=== PATIENT | female | born 1995 | race African-American/Black ===

== ENCOUNTER 2019-02-17 10:03 | Emergency (ER) | payer MEDICAID ==
--- NOTE | 2019-02-17 10:13 | ER Document Report ---
ED Medical Screen (RME) - General Stated Complaint: CHEST PAIN,COUGH,ABDOMINAL PAIN Time Seen by Provider: 02/17/19 10:08 Mode of Arrival: Ambulatory Information source: Patient Notes: 23-year-old female with no past medical history presents emergency department with complaints of cough for the past 2 weeks with her chest hurting. She also complains of left-sided abdominal pain that comes and goes for the past 2 weeks. Reports very little diarrhea and she vomited last week. She also reports her menses is a little different and she spotted, possibly . Denies fever. Denies past medical history of asthma cardiac disease. Denies past medical history of IBS Crohn's diverticulitis. Patient looks absolutely wonderful no distress respiratory rate even nonlabored. I have greeted and performed a rapid initial assessment of this patient. A comprehensive ED assessment and evaluation of the patient, analysis of test results and completion of the medical decision making process will be conducted by additional ED providers. - Related Data Allergies/Adverse Reactions: amoxicillin Allergy (Verified 02/17/19 10:08) Physical Exam - Vital signs Vitals: Temp Pulse Resp BP Pulse Ox 97.8 F 117 H 16 121/79 100 02/17/19 10:08 02/17/19 10:08 02/17/19 10:08 02/17/19 10:08 02/17/19 10:08 Course - Vital Signs Vital signs: Temp Pulse Resp BP Pulse Ox 97.8 F 117 H 16 121/79 100 02/17/19 10:08 02/17/19 10:08 02/17/19 10:08 02/17/19 10:08 02/17/19 10:08
[2019-02-17 10:52] LABS: ABSOLUTE BASOPHILS # (AUTO) 0.1 10^3/uL (0.0-0.2); ABSOLUTE MONOCYTES (AUTO) 0.6 10^3/uL (0.1-1.4); HEMATOCRIT 39.9 % (36.0-47.0); HEMOGLOBIN 13.3 g/dL (12.0-15.5); TOTAL CELLS COUNTED % (AUTO) 100 %
[2019-02-17 10:55] LABS: APPEARANCE,URINE CLEAR; BILIRUBIN,URINE NEGATIVE (NEGATIVE); COLOR,URINE YELLOW; GLUCOSE, URINE NEGATIVE (NEGATIVE); KETONES,URINE NEGATIVE (NEGATIVE); LEUKOCYTE ESTERASE,URINE TRACE (NEGATIVE); NITRITE,URINE NEGATIVE (NEGATIVE); PROTEIN,URINE NEGATIVE (NEGATIVE); UROBILINOGEN,URINE NEGATIVE mg/dL (<2.0)
[2019-02-17 10:59] LABS: ABSOLUTE LYMPHOCYTES (AUTO) 1.6 10^3/uL (0.5-4.7); ABSOLUTE NEUT (AUTO) 4.2 10^3/uL (1.7-8.2); BASOPHILS % (AUTO) 1.1 % (0-2); EOSINOPHILS % (AUTO) 0.7 % (0-6); LYMPHOCYTES % (AUTO) 24.7 % (13-45); MEAN CORPUSCULAR HEMOGLOBIN 31.1 pg (27.0-33.4); MEAN CORPUSCULAR HGB CONC 33.4 g/dL (32.0-36.0); MEAN CORPUSCULAR VOLUME 93 fl (80-97); MONOCYTES % (AUTO) 9.8 % (3-13); PLATELET COUNT 285 10^3/uL (150-450); RED BLOOD COUNT 4.27 10^6/uL (3.72-5.28); RED CELL DISTRIBUTION WIDTH 12.6 % (11.5-14.0); SEGMENTED NEUTROPHILS % (AUTO) 63.7 % (42-78); WHITE BLOOD COUNT 6.6 10^3/uL (4.0-10.5)
[2019-02-17 11:11] LABS: ALBUMIN 4.3 g/dL (3.5-5.0); ALKALINE PHOSPHATASE 70 U/L (38-126); ANION GAP 11 (5-19); ASPARTATE AMINO TRANSFERASE 20 U/L (14-36); BILIRUBIN,DIRECT 0.1 mg/dL (0.0-0.4); BILIRUBIN,TOTAL 0.4 mg/dL (0.2-1.3); BLOOD UREA NITROGEN 13 mg/dL (7-20); CALCIUM 9.4 mg/dL (8.4-10.2); CARBON DIOXIDE 23 mmol/L (22-30); CHLORIDE 106 mmol/L (98-107); GLUCOSE 106 mg/dL (75-110); POTASSIUM 3.6 mmol/L (3.6-5.0); TOTAL PROTEIN 7.3 g/dL (6.3-8.2)
--- NOTE | 2019-02-17 11:16 | RADIOLOGY REPORT (SQ) ---
EXAM DESCRIPTION: CHEST 2 VIEWS COMPLETED DATE/TIME: 02/17/2019 10:30 am REASON FOR STUDY: cough for 2 weeks COMPARISON: None. TECHNIQUE: Frontal and lateral radiographic views of the chest acquired. NUMBER OF VIEWS: Two view. LIMITATIONS: None. FINDINGS: LUNGS AND PLEURA: No opacities, masses or pneumothorax. No pleural effusion. MEDIASTINUM AND HILAR STRUCTURES: No masses or contour abnormalities. HEART AND VASCULAR STRUCTURES: Heart normal size. No evidence for failure. BONES: No acute findings. HARDWARE: None in the chest. OTHER: No other significant finding. IMPRESSION: NO SIGNIFICANT RADIOGRAPHIC FINDING IN THE CHEST. TECHNICAL DOCUMENTATION: JOB ID: [id number] [employer]- All Rights Reserved Reading location - IP/workstation name: [email or web address]
--- NOTE | 2019-02-17 11:21 | ER Document Report ---
ED General - General Chief Complaint: Chest Pain Stated Complaint: CHEST PAIN,COUGH,ABDOMINAL PAIN Time Seen by Provider: 02/17/19 10:08 Primary Care Provider: RAMSES REDDING MD [ACTIVE PROVISIONAL STAFF] - Follow up as needed RUBEN COLE DO [NO LOCAL MD] - Follow up as needed Mode of Arrival: Ambulatory TRAVEL OUTSIDE OF THE [place] IN LAST 30 DAYS: No - HPI Notes: 23-year-old female presents emergency room with complaints of cough with dull chest pain as well with intermittent left upper quadrant abdominal pain with intermittent nausea for the last 2 weeks. she is concerned that she also may be . abd pain and chest pain comes and goes. pt reports some pelvic cramping, but no vaginal bleeding, vaginal pain vaginal discharge, does report some dysuria with frequency and urgency with urination the last 2 days. patient states her periods been irregular, her last menstrual period was on January 10 and ended January 15, she was sexually active the first week of January. Patient is not on any control contraceptives. Denies any recent periods of immobilization, surgeries, history of clotting disorders or blood dyscrasias. Patient is a non-smoker. States that she spotted last month for about 5 days. last bowel movement was yesterday. Has not tried any [id number] medications. Denies fevers, chills, palpitations, shortness of breath, dyspnea, vomiting, diarrhea, abdominal pain, hematuria,blurred vision, double vision, loss of vision, speech changes, LH, dizziness, syncope, headaches, wheezing, ST, URI, neck pain, weakness, bowel or bladder dysfunction, saddle anesthesia, numbness or tingling in bilateral upper or lower extremities equally, muscle paralysis, weakness in bilateral upper or lower extremities equally or rash. - Related Data Allergies/Adverse Reactions: amoxicillin Allergy (Verified 02/17/19 10:08) Past Medical History - General Information source: Patient - Social History Smoking Status: Never Smoker Chew tobacco use (# tins/day): No Frequency of alcohol use: None Drug Abuse: None Family History: Reviewed & Not Pertinent Patient has suicidal ideation: No Patient has homicidal ideation: No Review of Systems - Review of Systems Constitutional: No symptoms reported EENT: No symptoms reported Cardiovascular: See HPI Respiratory: No symptoms reported Gastrointestinal: No symptoms reported Genitourinary: No symptoms reported Female Genitourinary: See HPI, Irregular period Musculoskeletal: No symptoms reported Skin: No symptoms reported Hematologic/Lymphatic: No symptoms reported Neurological/Psychological: No symptoms reported Physical Exam - Vital signs Vitals: Temp Pulse Resp BP Pulse Ox 97.8 F 117 H 16 121/79 100 02/17/19 10:08 02/17/19 10:08 02/17/19 10:08 02/17/19 10:08 02/17/19 10:08 - Notes Notes: PHYSICAL EXAMINATION: reviewed vital signs by RN GENERAL: Well-appearing, well-nourished and in no acute distress. HEAD: Atraumatic, normocephalic. EYES: Pupils equal round and reactive to light, extraocular movements intact, conjunctiva are normal. ENT: Nares patent, oropharynx clear without exudates. Moist mucous membranes. NECK: Normal range of motion, supple without lymphadenopathy LUNGS: Breath sounds clear to auscultation bilaterally and equal. No wheezes rales or rhonchi. HEART: Regular rate and rhythm without murmurs ABDOMEN: Soft, nontender, nondistended abdomen. No guarding, no rebound. No masses appreciated. Female : deferred Musculoskeletal: Normal range of motion, no pitting or edema. No cyanosis. NEUROLOGICAL: Cranial nerves grossly intact. Normal speech, normal gait. Normal sensory, motor exams PSYCH: Normal mood, normal affect. SKIN: Warm, Dry, normal turgor, no rashes or lesions noted. Course - Re-evaluation Re-evalutation: 02/17/19 11:35 Afebrile, reevaluation of heart rate 95, vitals stable. Nurse's notes reviewed. CBC negative for leukocytosis or anemia, CMP negative for hepatic or renal dysfunction, lipase normal. Urinalysis does show leukoesterase as well as positive for . EKG negative for STEMI, no ST segment elevations. Transvaginal ultrasound does show thickening of the endometrium and uterus, which can be correlated with early sign of . Advised to follow-up with ANIMAL TECH and primary care provider for care. advised patient to start prenatals, avoid any drinking or smoking. Encouraged healthy diet. After performing a Medical Screening Examination, I estimate there is LOW risk for ACUTE APPENDICITIS, BOWEL OBSTRUCTION, ACUTE CHOLECYSTITIS, PERFORATED DIVERTICULITIS, INCARCERATED HERNIA, PANCREATITIS, PELVIC INFLAMMATORY DISEASE, PERFORATED ULCER, ECTOPIC , or TUBO-OVARIAN ABSCESS, thus I consider the discharge disposition reasonable. Also, there is no evidence or peritonitis, sepsis, or toxicity. I have reevaluated this patient multiple times and no significant life threatening changes are noted. The patient and I have discussed the diagnosis and risks, and we agree with discharging home with close follow-up with the understanding that symptoms and presentations can change. We also discussed returning to the Emergency Department immediately if new or worsening symptoms occur. We have discussed the symptoms which are most concerning (e.g., bloody stool, fever, changing or worsening pain, vomiting) that necessitate immediate return. - Vital Signs Vital signs: Temp Pulse Resp BP Pulse Ox 98.2 F 99 18 116/73 100 02/17/19 11:33 02/17/19 11:33 02/17/19 11:33 02/17/19 11:33 02/17/19 11:33 - Laboratory Result Diagrams: 02/17/19 10:40 02/17/19 10:40 Laboratory results interpreted by me: 02/17/19 10:40 Ur Leukocyte Esterase TRACE H Urine HCG, Qual POSITIVE H Discharge - Discharge Clinical Impression: , UTI (urinary tract infection) Condition: Stable Disposition: HOME, SELF-CARE Instructions: Nitrofurantoin ([facility]), ([facility]), Urinary Tract Infection ([facility]) Additional Instructions: Your blood work today was normal as well as your EKG. your urinalysis showed a UTI, will treat appropriately with safe antibiotics. Take twice a day for 7 days. Will obtain urine culture and call with results. urinalysis was positive for . Ultrasound did show thickening of the uterus which is the beginning of , there does not appear to be a ectopic . Please follow-up closely with ANIMAL TECH and primary care provider. Please start taking a vitamin daily. Avoid any smoking or alcoholic beverages. Return immediately for any new or worsening symptoms. Follow up with primary care provider, call tomorrow to make followup appointment. Prescriptions: Nitrofurantoin Macrocrystal [Macrodantin] 100 mg PO BID #14 capsule Vits96/Iron Fum/Folic [ Tablet] 1 each PO DAILY #30 tablet Referrals: RAMSES REDDING MD [ACTIVE PROVISIONAL STAFF] - Follow up as needed DOUGLAS,RUBEN, DO [NO LOCAL MD] - Follow up as needed
--- NOTE | 2019-02-17 12:51 | RADIOLOGY REPORT (SQ) ---
EXAM DESCRIPTION: U/S OB TRANSVAG W/DOPPLER COMPLETED DATE/TIME: 02/17/2019 12:35 pm REASON FOR STUDY: with intermitttent pelvic cramping COMPARISON: None. TECHNIQUE: Transvaginal static and realtime grayscale images acquired of the pelvis. Additional lily cted spectral and color Doppler images recorded. All images stored on PACs. CLINICAL AGE: 5 week 1 day BHCG: Not provided LIMITATIONS: None. FINDINGS: UTERUS: Endometrial thickening close to 1.5 cm. There are tiny hypoechoic irregular fluid collections within the endometrium measuring up to just over 1 cm. Indeterminate for . RIGHT ADNEXA: Normal ovary with normal vascular flow. No adnexal free fluid. No adnexal masses. LEFT ADNEXA: Normal ovary with normal vascular flow. No adnexal free fluid. 2.2 cm probable corpus luteum. FREE FLUID: None. OTHER: Cervix measures 1.9 cm, closed. IMPRESSION: 1. Thickened heterogeneous endometrium with tiny fluid collections within. 1 of these could represen t an early gestational sac. Indeterminate for , however. Close clinical followup recommend ed with serial beta HCG and ultrasound scanning as warranted. TECHNICAL DOCUMENTATION: JOB ID: [id number] [employer]- All Rights Reserved Reading location - IP/workstation name: [email or web address]
[2019-02-17 13:39] VITALS: BP 121/77
--- NOTE | 2019-02-18 08:48 | EKG REPORT ---
SEVERITY:- BORDERLINE ECG - SINUS TACHYCARDIA PROBABLE LEFT ATRIAL ABNORMALITY : Confirmed on behalf of: Georgia Stearns MD 18-Feb-2019 08:47:41
== END 2019-02-17 13:44 | disposition home or self-care (01) ==
LOC: ER 10:03
DX: O23.41 Unspecified infection of urinary tract in pregnancy, first trimester (principal); R07.9 Chest pain, unspecified; R05 Cough; R10.12 Left upper quadrant pain
CPT/HCPCS: 36415; 71046; 76817; 80053; 81001; 81025; 83690; 85025; 87086; 93005; 93010; 93976; 99284

== ENCOUNTER 2020-02-19 16:18 | Outpatient (CLI) | payer MEDICAID ==
--- NOTE | 2020-02-19 17:27 | Non Stress Test Report ---
Non Stress Test Datetime Report Generated by CPN: 02/19/2020 17:27 DEMOGRAPHIC EGA NST: 36.1 INDICATION Indication for Study (NST) Other: IUP at 36.1 VITAL SIGNS Temperature - NST: 97.3 Pulse - NST: 92 RESP - NST: 18 NBPSYS NST: 99 NBPDIA NST: 65 MONITORING Monitor Explained: Monitor Explained; Test Explained; Patient Verbalized Understanding Time on Monitor: 02/19/2020 16:30 Time off Monitor: 02/19/2020 17:22 NST Duration: 52 NST INTERVENTIONS NST Interventions: PO Hydration BABY A: [id number] BABY A Movement : Present Contraction Frequency : 0 FHR Baseline : 135 Accelerations : 15X15 Decelerations : None Variability : Moderate 6-25bpm NST Review: Meets Criteria for Reactive NST NST Review and Verified By : RADHA Dos Santos NST Results: Reactive NST REPORT Report Trigger: Send Report
== END 2020-02-19 17:28 | disposition home or self-care (01) ==
LOC: LC 16:18
PROVIDERS: ATTEND Obstetrics & Gynecology
DX: Z34.83 Encounter for supervision of other normal pregnancy, third trimester (principal); Z3A.36 36 weeks gestation of pregnancy
CPT/HCPCS: 59025

== ENCOUNTER 2020-02-26 17:58 | Outpatient (CLI) | payer MEDICAID ==
--- NOTE | 2020-02-26 19:39 | RADIOLOGY REPORT (SQ) ---
EXAM DESCRIPTION: U/S OB LIMITED IMAGES COMPLETED DATE/TIME: 02/26/2020 7:23 pm REASON FOR STUDY: Non reactive NST COMPARISON: None. TECHNIQUE: Limited knowles-scale realtime and static images of the fetus to measure specified parameter s. LIMITATIONS: None. FINDINGS: HEART RATE: 152 beats per minute. ELIESER: Adequate cm. MVP: 1.9 x 3.7 cm cm. BREATHING MOVEMENT: 2 points. MOVEMENT: 2 points. POSTURE AND TONE: 2 points. QUALITATIVE ELIESER: 2 points. OTHER: No other significant finding. IMPRESSION: BIOPHYSICAL PROFILE: 09/27. Trimester of : Third - 28 weeks to delivery COMMENT: BREATHING MOVEMENTS: 2 POINTS: PRESENT 0 POINTS: ABSENT MOTION: 2 POINTS: PRESENT 0 POINTS: ABSENT TONE: 2 POINTS: PRESENT 0 POINTS: ABSENT AMNIOTIC FLUID VOLUME: 2 POINTS: LARGEST POCKET GREATER THAN 2 CM DEPTH. 0 POINTS: NO POCKET OF 2 CM. TECHNICAL DOCUMENTATION: JOB ID: [id number] [employer]- All Rights Reserved Reading location - IP/workstation name: [email or web address]
== END 2020-02-26 19:38 | disposition home or self-care (01) ==
LOC: LC 17:58
PROVIDERS: ATTEND Obstetrics & Gynecology
DX: O36.5930 Maternal care for other known or suspected poor fetal growth, third trimester, not applicable or unspecified (principal); Z3A.37 37 weeks gestation of pregnancy; Z88.1 Allergy status to other antibiotic agents
CPT/HCPCS: 76815

== ENCOUNTER 2020-03-10 11:07 | Inpatient (IN) | payer MEDICAID ==
--- NOTE | 2020-03-10 11:10 | Non Stress Test Report ---
Non Stress Test Datetime Report Generated by CPN: 03/10/2020 11:09 DEMOGRAPHIC EGA NST: 37.1 INDICATION Indication for Study (NST) Other: Sent from office VITAL SIGNS Temperature - NST: 98.6 Pulse - NST: 92 RESP - NST: 16 NBPSYS NST: 112 NBPDIA NST: 68 MONITORING Monitor Explained: Monitor Explained; Test Explained; Patient Verbalized Understanding Time on Monitor: 02/26/2020 18:08 Time off Monitor: 02/26/2020 18:41 NST Duration: 33 NST INTERVENTIONS NST Interventions: PO Hydration; Reposition Patient; For Biophysical Profile Physician Notified NST: Dr. Joe BABY A: [id number] BABY A Movement : Present Contraction Frequency : rare FHR Baseline : 145 Accelerations : 10X10 Decelerations : None Variability : Moderate 6-25bpm NST Review: Meets Criteria for Reactive NST NST Review and Verified By : Sumeet Araya RN/ patient had a BPP of 8/8 NST Results: Non-Reactive NST REPORT Report Trigger: Send Report
[2020-03-10 11:51] LABS: APPEARANCE,URINE SLIGHTLY-CLOUDY; BILIRUBIN,URINE NEGATIVE (NEGATIVE); COLOR,URINE YELLOW; GLUCOSE, URINE NEGATIVE (NEGATIVE); KETONES,URINE NEGATIVE (NEGATIVE); LEUKOCYTE ESTERASE,URINE LARGE (NEGATIVE); NITRITE,URINE NEGATIVE (NEGATIVE); PROTEIN,URINE NEGATIVE (NEGATIVE); URINE SPECIFIC GRAVITY 1.005; UROBILINOGEN,URINE NEGATIVE mg/dL (<2.0)
[2020-03-10] MEDS ORDERED: RINGERS SOLUTION,LACTATED 1,000 ML IV ONE (11:56)
[2020-03-10 12:04] LABS: URINE AMPHETAMINES SCREEN NEGATIVE; URINE BARBITURATES SCREEN NEGATIVE; URINE BENZODIAZEPINES SCREEN NEGATIVE; URINE COCAINE SCREEN NEGATIVE; URINE MARIJUANA (THC) SCREEN NEGATIVE; URINE METHADONE SCREEN NEGATIVE; URINE PHENCYCLIDINE SCREEN NEGATIVE
[2020-03-10] MEDS ORDERED: LABETALOL HCL INJ 20 MG/4 ML DISP.SYRIN IV ONE ×7 (13:30→21:41)
[2020-03-10] MEDS ORDERED: OXYTOCIN/0.9 % SODIUM CHLORIDE 30 UNIT/500 ML RTUINJ IV PRN ×2 (14:27→19:37)
--- NOTE | 2020-03-10 14:41 | Admission Physical ---
Datetime Report Generated by CPN: 03/10/2020 14:40 CURRENT ADMISSION Indication for Induction: Gestational HTN; Oligohydramnios Admit Impression : Term, Intrauterine Admit Plan: Admit to Unit; Initiate Labor Induction Protocol ALLERGIES Medication Allergies: Yes Medication Allergies: amoxicillin (03/10/2020) Latex: No Latex Allergies OBSTETRICAL HISTORY EDC: 03/17/2020 00:00 : 3 Para: 1 Term: 1 : 0 SAB: 0 IAB: 1 Livin PHYSICAL EXAM General: Normal HEENT: Normal Neurologic: Normal Thyroid: Normal Heart: Normal Lungs: Normal Breast: Normal Back: Normal Abdomen: Normal Genitourinary Exam: Normal Extremities: Normal DTRs: Normal Pelvic Type: Adequate Vital Signs: Reviewed MEMBRANES Membranes: Intact FETUS A Monitoring: External US FHR- Baseline: 145 Variability: Moderate 6-25bpm Accelerations: 15X15 Decelerations: Variable Admit Comment: at at 38.6 wks sent over from the office w/ ELIESER of 4.95 cm. Negative Actiprom. GBS negative. Pt found to have elevated BP's today, requiring tx with IV Labetalol 20 mg. Pt denies headache, blurred vision or epigstric pain, DTR's normal on exam. D/w Dr Veloz and will plan to admit patient and proceed w/ IOL since Oligohydramnios and GHTN. PLan of care discussed w/ patient. Will plan Pitocin. VE per RN today 2 INFORMED CONSENT Assignment: María Veloz MD Signature: with User ID: [email or web address] : with User ID: [email or web address]
[2020-03-10 15:15] LABS: ABSOLUTE LYMPHOCYTES (AUTO) 1.4 10^3/uL (0.5-4.7); ABSOLUTE MONOCYTES (AUTO) 0.7 10^3/uL (0.1-1.4); ABSOLUTE NEUT (AUTO) 3.5 10^3/uL (1.7-8.2); BASOPHILS % (AUTO) 0.2 % (0-2); EOSINOPHILS % (AUTO) 0.4 % (0-6); HEMATOCRIT 35.6 % (36.0-47.0); HEMOGLOBIN 11.5 g/dL (12.0-15.5); LYMPHOCYTES % (AUTO) 25.5 % (13-45); MEAN CORPUSCULAR HEMOGLOBIN 30.5 pg (27.0-33.4); MEAN CORPUSCULAR HGB CONC 32.4 g/dL (32.0-36.0); MEAN CORPUSCULAR VOLUME 94 fl (80-97); MONOCYTES % (AUTO) 11.8 % (3-13); PLATELET COUNT 137 10^3/uL (150-450); RED BLOOD COUNT 3.78 10^6/uL (3.72-5.28); RED CELL DISTRIBUTION WIDTH 13.5 % (11.5-14.0); SEGMENTED NEUTROPHILS % (AUTO) 62.1 % (42-78); TOTAL CELLS COUNTED % (AUTO) 100 %; WHITE BLOOD COUNT 5.6 10^3/uL (4.0-10.5)
[2020-03-10 15:33] LABS: ALBUMIN 2.9 g/dL (3.5-5.0); ALKALINE PHOSPHATASE 188 U/L (38-126); ASPARTATE AMINO TRANSFERASE 23 U/L (14-36); BILIRUBIN,DIRECT 0.1 mg/dL (0.0-0.4); BILIRUBIN,TOTAL 0.3 mg/dL (0.2-1.3); BLOOD UREA NITROGEN 9 mg/dL (7-20); GLUCOSE 75 mg/dL (75-110); POTASSIUM 4.2 mmol/L (3.6-5.0); TOTAL PROTEIN 5.3 g/dL (6.3-8.2); URIC ACID 4.9 mg/dL (2.5-6.2)
[2020-03-10 15:38] LABS: CARBON DIOXIDE 24 mmol/L (22-30); CHLORIDE 106 mmol/L (98-107)
[2020-03-10 15:40] LABS: ANION GAP 4 (5-19)
[2020-03-10 17:12] LABS: UR PRO/CREAT RATIO RESULT 0.3 mg/mg (0.0-0.2); URINE CREATININE 40.2 mg/dL (16-327); URINE PROTEIN 12.4 mg/dL (<12)
[2020-03-10] MEDS ORDERED: OXYTOCIN 10 UNIT/ML VIAL ONE (17:44)
[2020-03-10] MEDS ORDERED: OXYTOCIN/0.9 % SODIUM CHLORIDE 30 UNIT/500 ML RTUINJ ONE (17:45)
[2020-03-10] MEDS ORDERED: LIDOCAINE 1% INJ-PF (10 MG/ML) 30 ML SDV ONE (17:45)
[2020-03-10] MEDS ORDERED: MISOPROSTOL 0.2 MG TABLET ONE (17:45)
[2020-03-10] MEDS ORDERED: IBUPROFEN 800 MG TABLET PO ONE (19:30)
[2020-03-10] MEDS ORDERED: FAMOTIDINE 20 MG TABLET PO PRN (19:37)
[2020-03-10] MEDS ORDERED: GLYCERIN/WITCH HAZEL LEAF 1 EACH MED..WIPE TP PRN (19:37)
[2020-03-10] MEDS ORDERED: DIPHENHYDRAMINE HCL 25 MG CAPSULE PO PRN (19:37)
[2020-03-10] MEDS ORDERED: MAGNESIUM HYDROXIDE SUSP 30 ML UDCUP PO PRN (19:37)
[2020-03-10] MEDS ORDERED: PSEUDOEPHEDRINE HCL 30 MG TABLET PO PRN (19:37)
[2020-03-10] MEDS ORDERED: ZOLPIDEM TARTRATE 5 MG TABLET PO PRN (19:37)
[2020-03-10] MEDS ORDERED: ACETAMINOPHEN 650 MG SUPP.RECT PR PRN (19:37)
[2020-03-10] MEDS ORDERED: DIBUCAINE 1% OINTMENT 28 GM TP PRN (19:37)
[2020-03-10] MEDS ORDERED: ACETAMINOPHEN 325 MG TABLET PO PRN (19:37)
[2020-03-10] MEDS ORDERED: BENZOCAINE/MENTHOL AEROSOL SPRAY 56 ML TOP PRN (19:37)
[2020-03-10] MEDS ORDERED: MAG HYDROX/AL HYDROX/SIMETH SUSP 30 ML UDCUP PO PRN (19:37)
[2020-03-10] MEDS ORDERED: VARICELLA VACC/PF (1350 UNIT/0.5 ML) 0.5 ML VIAL SUBCUT PRN (19:37)
[2020-03-10] MEDS ORDERED: DIPH/PERTUSS(ACELL)/TETANUS VAC/PF 0.5 ML SYR (>=10YO) IM PRN (19:37)
[2020-03-10] MEDS ORDERED: ACETAMINOPHEN WITH CODEINE #3 TABLET PO PRN (19:37)
[2020-03-10] MEDS ORDERED: MEASLES,MUMPS&RUBELLA VACC/PF 0.5 ML VIAL SUBCUT PRN (19:37)
[2020-03-10] MEDS ORDERED: NIFEDIPINE 30 MG TAB.ER.24 PO ONE ×2 (20:07→20:09)
[2020-03-10] MEDS ORDERED: IBUPROFEN 800 MG TABLET ONE (20:09)
[2020-03-10] MEDS ORDERED: MAGNESIUM SULFATE 20 GM/500 ML RTUINJ IV ONE (20:45)
[2020-03-10] MEDS ORDERED: MAGNESIUM SULFATE 4 GM/100 ML RTUPB IV ONE ×2 (20:45→20:47)
[2020-03-10] MEDS ORDERED: MAGNESIUM SULFATE 20 GM/500 ML RTUINJ IV PRN (20:47)
--- NOTE | 2020-03-11 00:18 | Birth Certificate Data ---
Cert Data Datetime Report Generated by CPN: 03/11/2020 00:18 CERTIFICATE DATA Delivery Provider: María Veloz MD (01/30/2020 17:10:Desiree Araya RNC) 47a. Care: Yes (01/30/2020 17:10:Amara Oneill RN) 47b. Date of First Visit: 09/05/2019 00:00 (01/30/2020 17:10:Amara Oneill RN) 47c. Date of Last Visit: 03/10/2020 00:00 (01/30/2020 17:10:Amara Oneill RN) 47d. Number of Visits: 15 (01/30/2020 17:10:Amara Oneill RN) 48a. Number of Prev Live Births: 1 (01/30/2020 17:10:Amara Oneill RN) 48b. Now Livin (01/30/2020 17:10:Sindy Miranda RN) 48c. Live Births Now : 0 (01/30/2020 17:10:QS system process) 48d. Date of Last Live : 12/09/2014 00:00 (01/30/2020 17:10:Amara Oneill RN) 48e. Losses: 1 (01/30/2020 17:10:Amara Oneill RN) 48f. Date of Last Preg Loss: 02/25/2019 00:00 (01/30/2020 17:10:Amara Oneill RN) RISK FACTORS IN THIS 49a. Diabetes: No (01/30/2020 17:10:Amara Oneill RN) 49b. Hypertension: No (01/30/2020 17:10:Amara Oneill RN) Type of Hypertension: Gestational (PIH, Pre-eclampsia) (01/30/2020 17:10:Amara Oneill RN) 49c. Previous Births: 0 (01/30/2020 17:10:Sindy Miranda RN) 49d. Stillborns: No (01/30/2020 17:10:Amara Oneill RN) 49d. IUGR: No (01/30/2020 17:10:Amara Oneill RN) 49e. Infertility Treatment: No (01/30/2020 17:10:Amara Oneill RN) 49f. Previous Cesareans: 0 (01/30/2020 17:10:Amara Oneill RN) Mother's Height 50b. Height Inches: 59 (03/10/2020 18:15:QS system process) Mother's Weight 51a. Pre- Weight (lbs): 115 (01/30/2020 17:10:Amara Oneill RN) 51b. Weight at Delivery (lbs): 132 (03/10/2020 18:15:QS system process) Infections Present/Treated 53a. Gonorrhea: Yes (01/30/2020 17:10:Amara Oneill RN) 53b. Syphilis: No (01/30/2020 17:10:Amara Oneill RN) 53c. Chlamydia: Yes (01/30/2020 17:10:Amara Oneill RN) 53d. Hepatitis B: No (01/30/2020 17:10:Amara Oneill RN) Results this Hospital Visit: Negative (01/30/2020 17:10:Elizabeth Ham RN) 53h. Mother Tested for HBsAG: Yes (01/30/2020 17:10:Amara Oneill RN) 53i. Date Tested: 09/05/2019 00:00 (01/30/2020 17:10:Amarajose Oneill RN) 53j. Test Result: Negative (01/30/2020 17:10:Elizabethdevi Ham RN) Cigarette Smoking Cigarette Smoking: Never Smoker. [id number] (01/30/2020 17:10:Amara NinoRADHA) Onset of Labor 56a. PROM >12 Hrs: 2.65 (03/10/2020 16:38:QS system process) 56b. Precipitous Labor <3 Hrs: 0 (01/30/2020 17:10:QS system process) 56c. Prolonged Labor > 20 Hrs: 0 (01/30/2020 17:10:QS system process) 57a. Induction of Labor: Induction (01/30/2020 17:10:ARMIDA Crowell) 57c. Non-Vertex Presentation A: Vertex (01/30/2020 17:10:ARMIDA Crowell) 57d. Steroids - Lung Mat: None (01/30/2020 17:10:Amara Oneill RN) 57d. Steroids - Lung Mat: Not Applicable (01/30/2020 17:10:Amara Oneill RN) 57f. Mat Ch[place] or Temp >100.4: 98.2 (01/30/2020 17:10:ARMIDA Crowell) 57g. Moderate/Heavy Meconium: Clear (03/10/2020 16:38:Amara Oneill RN) 57h. Intolerance of Labor: N/A (01/30/2020 17:10:ARMIDA Crowell) : N/A (01/30/2020 17:10:Nj José RN) 57i. Epidural/Spinal Anesthesia: None (01/30/2020 17:10:Amara Oneill RN) Method of Delivery 58a. Forceps - Unsuccessful A: N/A (01/30/2020 17:10:ARMIDA Crowell) 58b. Vacuum - Unsuccessful A: N/A (01/30/2020 17:10:Desiree Araya, [facility]) 58c. Presentation at 58c. Presentation at - A : Vertex (01/30/2020 17:10:Desiree Maliance, [facility]) 58c. Presentation at - A : N/A (01/30/2020 17:10:Desiree Finleynce, [facility]) 58c. Presentation at - A : Cephalic (01/30/2020 17:10:Desiree Christinae, [facility]) Final Route and Method of Del 58d. Baby A Route/Delivery: Vaginal (03/10/2020 19:17:Nj José RN) 58e. Trial of Labor Attempted: No (01/30/2020 17:10:Amara Oneill RN) 58e. Trial of Labor Attempted A: N/A (01/30/2020 17:10:Amara Oneill RN) 58e. Trial of Labor Attempted B: N/A (01/30/2020 17:10:Amara Sales, RN) Maternal Morbidity 59b. 3rd or 4th Degree Lacs: None (01/30/2020 17:10:Desiree Quiana, RNC) Birthweight Baby A: 2630 (01/30/2020 17:10:Lexijuwan Pinedo, RN) 60a. Pounds : 5 (01/30/2020 17:10:QS system process) 60b. Ounces: 13 (01/30/2020 17:10:QS system process) 61. GA at Delivery Baby A: 39.0 (01/30/2020 17:10:Desiree Araya [facility]) : Full Term- 39- 40.6 Weeks (01/30/2020 17:10:QS system process) 62a. 5 Minute Baby A: 9 (01/30/2020 17:10:QS system process)
--- NOTE | 2020-03-11 00:18 | Delivery Summary ---
Del Sum A-C Datetime Report Generated by CPN: 03/11/2020 00:18 DELIVERY PERSONNEL DELIVERY PERSONNEL: [id number] Delivery Doctor:: María Veloz MD Labor and Delivery Nurse:: Nj José RNtruck leasing manager Nurse:: Tonya Wellington RN Scale Installer/SEARCH MARKETING SPECIALIST: Fredrick Salamanca, PRODUCT DEVELOPMENT MANAGER MATERNAL INFORMATION Delivery Anesthesia: None Medications After Delivery: Pitocin 30 Units in 500ml NS/D5W Estimated Blood Loss (ml): 100 Delivery QBL: 100 Maternal Complications: Precipitous Labor (<3hrs) Complication Details: oligo /B/P LABOR SUMMARY EDC: 03/17/2020 00:00 No. Babies in Womb: 1 Attempted: No Labor Anesthesia: None LABOR INFORMATION Reason for Induction: Pre-Eclampsia Onset of Labor: 03/10/2020 19:00 Complete Dilatation: 03/10/2020 19:16 Oxytocin: Induction Group B Beta Strep: Negative Antibiotics # of Doses: 0 Name of Antibiotic Given: N/A Steroids Given: None Reason Steroids Not Administered: Not Applicable MEMBRANES Membranes Rupture Method: Artificial Rupture of Membranes: 03/10/2020 16:38 Length of Rupture (hr): 2.65 Amniotic Fluid Color: Clear Amniotic Fluid Amount: Scant Amniotic Fluid Odor: Normal STAGES OF LABOR Stage 1 hr: 0 Stage 1 min: 16 Stage 2 hr: 0 Stage 2 min: 1 Stage 3 hr: 0 Stage 3 min: 6 Total Time in Labor hr: 0 Total Time in Labor min: 23 VAGINAL DELIVERY Episiotomy: None Laceration #1: None Laceration Extension #1: N/A Laceration Repair: Not Applicable Sponge Count Correct: N/A Sharps Count Correct: N/A CSECTION DELIVERY Primary Indication: N/A Secondary Indication: N/A CSection Incidence: N/A Labor: N/A Elective: N/A CSection Incision: N/A BABY A INFORMATION Infant Delivery Date/Time: 03/10/2020 19:17 Method of Delivery: Vaginal Nurse Controlled Delivery: No Born in Route : No : N/A Forceps: N/A Vacuum Extraction: N/A Shoulder Dystocia : No PRESENTATION/POSITION BABY A Presentation: Cephalic Cephalic Presentation: Vertex Vertex Position: Left Occipital Anterior Breech Presentation: N/A PLACENTA INFORMATION BABY A Placenta Delivery Time : 03/10/2020 19:23 Placenta Method of Delivery: Spontaneous Placenta Status: Delivered SCORES BABY A Heart Rate 1 min: >100 bpm Resp Effort 1 min: Good Cry Reflex Irritability 1 min: Cough or Sneeze or Pulls Away Muscle Tone 1 min: Active Motion Color 1 min: Blue/Pale Resuscitation Effort 1 min: Tactile Stimulation SCORE 1 MIN: 8 Heart Rate 5 min: >100 bpm Resp Effort 5 min: Good Cry Reflex Irritability 5 min: Cough or Sneeze or Pulls Away Muscle Tone 5 min: Active Motion Color 5 min: Body [place], Extremities Blue Resuscitation Effort 5 min: Tactile Stimulation SCORE 5 MIN: 9 INFORMATION BABY A Gestational Age at Delivery: 39.0 Gestational Status: Full Term- 39- 40.6 Weeks Infant Outcome : Liveborn Infant Condition : Stable Sex: Female IDENTIFICATION BABY A Verification Date/Time: 03/10/2020 19:44 ID Band Number: [id number] Mother's Name Verified: Yes Infant RN Verifying : David Murray RN/D Christinae RN WEIGHT/LENGTH BABY A Birthweight (gm): 2630 Infant Weight (lb): 5 Infant Weight (oz): 13 Length (in): 19.25 Length (cm): 48.90 CORD INFORMATION BABY A No. Cord Vessels: 3 Nuchal Cord : N/A Cord Blood Taken: Yes-For Eval (Mom's Blood Type - or O+) Suction: Mouth; Nose ASSESSMENT BABY A Infant Complications: None Physical Findings at Delivery: Within Normal Limits Respirations: Appears Normal Skin to Skin: Yes Skin to Skin Time (min): 60 Washery Engineer/ALS Called : No Care By: T Arnav RN Transferred To: Remains with Mother BABY B INFORMATION : N/A SIGNATURES Signature: with User ID: [email or web address]
[2020-03-11] MEDS ORDERED: BENZOCAINE/MENTHOL AEROSOL SPRAY 56 ML ONE (01:17)
--- NOTE | 2020-03-11 01:24 | Warning Signs in Babies ---
VOD Warning Signs Datetime Report Generated by [facility]: 03/11/2020 01:24 VOD#608 -Warning Signs in Babies: Viewed with Parent(s)/Family (03/11/2020 01:23:Nj José RN)
[2020-03-11] MEDS ORDERED: IBUPROFEN 800 MG TABLET ONE (03:50)
[2020-03-11] MEDS: IBUPROFEN 800 MG TABLET PO SCH ×3 (04:03→17:34)
[2020-03-11 07:31] LABS: HEMATOCRIT 31.8 % (36.0-47.0); HEMOGLOBIN 10.5 g/dL (12.0-15.5); MEAN CORPUSCULAR HEMOGLOBIN 30.9 pg (27.0-33.4); MEAN CORPUSCULAR VOLUME 94 fl (80-97); PLATELET COUNT 129 10^3/uL (150-450); RED CELL DISTRIBUTION WIDTH 13.4 % (11.5-14.0)
[2020-03-11 07:42] LABS: WHITE BLOOD COUNT 12.9 10^3/uL (4.0-10.5)
[2020-03-11] MEDS: SENNOSIDES/DOCUSATE 8.6-50 MG 1 EACH TABLET PO SCH (10:21)
[2020-03-11] MEDS: DOCUSATE SODIUM 100 MG CAPSULE PO SCH ×2 (10:21→17:34)
[2020-03-11] MEDS: FERROUS SULFATE 325 MG TABLET PO SCH ×2 (10:21→17:36)
[2020-03-11] MEDS: PRENATAL VITAMIN W DHA CAPSULE PO SCH (12:11)
[2020-03-11] MEDS ORDERED: LABETALOL HCL INJ 20 MG/4 ML DISP.SYRIN IV ONE (12:30)
[2020-03-11] MEDS: ACETAMINOPHEN WITH CODEINE #3 TABLET PO PRN ×2 (16:06→22:23)
[2020-03-12] MEDS: IBUPROFEN 800 MG TABLET PO SCH ×2 (02:18→09:13)
[2020-03-12] MEDS ORDERED: INFLUENZA QUAD (6MOS+) 2020-21 VAC 0.5 ML SYR IM ONE (08:00)
[2020-03-12] MEDS: SENNOSIDES/DOCUSATE 8.6-50 MG 1 EACH TABLET PO SCH (09:13)
[2020-03-12] MEDS: DOCUSATE SODIUM 100 MG CAPSULE PO SCH (09:13)
[2020-03-12] MEDS: FERROUS SULFATE 325 MG TABLET PO SCH (09:13)
[2020-03-12] MEDS ORDERED: IRON FUM PO SCH (10:00)
[2020-03-12] MEDS ORDERED: PRENATAL VITS96 PO SCH (10:00)
[2020-03-12] MEDS ORDERED: FOLIC PO SCH (10:00)
--- NOTE | 2020-03-12 10:38 | PDOC DISCHARGE SUMMARY ---
Impression - Admit/DC Date/PCP Admission Date/Primary Care Provider: 03/10/20 14:24 JYOTSNA ROSALES MD Discharge Date: 03/12/20 - Discharge Diagnosis (1) 38 weeks gestation of Is this a current diagnosis for this admission?: Yes (2) Mild pre-eclampsia affecting second Is this a current diagnosis for this admission?: Yes (3) Oligohydramnios Is this a current diagnosis for this admission?: Yes (4) (spontaneous vaginal delivery) Is this a current diagnosis for this admission?: Yes - Additional Information Discharge Activity: Balance Activity w/Rest, Pelvic Rest Referrals: JYOTSNA ROSALES MD [Primary Care Provider] - Prescriptions: Ibuprofen [Motrin 800 mg Tablet] 800 mg PO Q8HP PRN #90 tablet PRN Reason: Vit/Dha [ Multi + Dha Capsule] 1 cap PO DAILY #90 capsule Acetaminophen with Codeine [Tylenol #3 Tablet] 1 each PO Q4HP PRN #10 tablet PRN Reason: Home Medications: Acetaminophen with Codeine [Tylenol #3 Tablet] 1 each PO Q4HP PRN #10 tablet 03/12/20 Ibuprofen [Motrin 800 mg Tablet] 800 mg PO Q8HP PRN #90 tablet 03/12/20 Vit/Dha [ Multi + Dha Capsule] 1 cap PO DAILY #90 capsule Hospital Course 59. Maternal Morbidity (serious complications experinced by the mother associated with labor and delivery: None of the above Results Laboratory Results: WBC 12.9 10^3/uL (4.0-10.5) H D 03/11/20 07:10 RBC 3.40 10^6/uL (3.72-5.28) L 03/11/20 07:10 Hgb 10.5 g/dL (12.0-15.5) L 03/11/20 07:10 Hct 31.8 % (36.0-47.0) L 03/11/20 07:10 MCV 94 fl (80-97) 03/11/20 07:10 MCH 30.9 pg (27.0-33.4) 03/11/20 07:10 MCHC 33.0 g/dL (32.0-36.0) 03/11/20 07:10 RDW 13.4 % (11.5-14.0) 03/11/20 07:10 Plt Count 129 10^3/uL (150-450) L 03/11/20 07:10 Lymph % (Auto) 25.5 % (13-45) 03/10/20 14:45 Wilcox % (Auto) 11.8 % (3-13) 03/10/20 14:45 Eos % (Auto) 0.4 % (0-6) 03/10/20 14:45 Baso % (Auto) 0.2 % (0-2) 03/10/20 14:45 Absolute Neuts (auto) 3.5 10^3/uL (1.7-8.2) 03/10/20 14:45 Absolute Lymphs (auto) 1.4 10^3/uL (0.5-4.7) 03/10/20 14:45 Absolute Monos (auto) 0.7 10^3/uL (0.1-1.4) 03/10/20 14:45 Absolute Eos (auto) 0.0 10^3/uL (0.0-0.6) 03/10/20 14:45 Absolute Basos (auto) 0.0 10^3/uL (0.0-0.2) 03/10/20 14:45 Seg Neutrophils % 62.1 % (42-78) 03/10/20 14:45 Sodium 134.2 mmol/L (137-145) L 03/10/20 14:45 Potassium 4.2 mmol/L (3.6-5.0) 03/10/20 14:45 Chloride 106 mmol/L (98-107) 03/10/20 14:45 Carbon Dioxide 24 mmol/L (22-30) 03/10/20 14:45 Anion Gap 4 (5-19) L 03/10/20 14:45 BUN 9 mg/dL (7-20) 03/10/20 14:45 Creatinine 0.71 mg/dL (0.52-1.25) 03/10/20 14:45 Est GFR ( Amer) > 60 (>60) 03/10/20 14:45 Est GFR (MDRD) Non-Af > 60 (>60) 03/10/20 14:45 Glucose 75 mg/dL (75-110) 03/10/20 14:45 Uric Acid 4.9 mg/dL (2.5-6.2) 03/10/20 14:45 Calcium 9.0 mg/dL (8.4-10.2) 03/10/20 14:45 Total Bilirubin 0.3 mg/dL (0.2-1.3) 03/10/20 14:45 Direct Bilirubin 0.1 mg/dL (0.0-0.4) 03/10/20 14:45 Neonat Total Bilirubin Not Reportable 03/10/20 14:45 Neonat Direct Bilirubin Not Reportable 03/10/20 14:45 Neonat Indirect Bili Not Reportable 03/10/20 14:45 AST 23 U/L (14-36) 03/10/20 14:45 ALT 13 U/L (<35) 03/10/20 14:45 Alkaline Phosphatase 188 U/L (38-126) H 03/10/20 14:45 Lactate Dehydrogenase 181 U/L (120-246) 03/10/20 14:45 Total Protein 5.3 g/dL (6.3-8.2) L 03/10/20 14:45 Albumin 2.9 g/dL (3.5-5.0) L 03/10/20 14:45 Urine Color YELLOW 03/10/20 11:16 Urine Appearance SLIGHTLY-CLOUDY 03/10/20 11:16 Urine pH 7.0 (5.0-9.0) 03/10/20 11:16 Ur Specific Likely 1.005 03/10/20 11:16 Urine Protein NEGATIVE mg/dL (NEGATIVE) 03/10/20 11:16 Urine Glucose (UA) NEGATIVE mg/dL (NEGATIVE) 03/10/20 11:16 Urine Ketones NEGATIVE mg/dL (NEGATIVE) 03/10/20 11:16 Urine Blood NEGATIVE (NEGATIVE) 03/10/20 11:16 Urine Nitrite NEGATIVE (NEGATIVE) 03/10/20 11:16 Urine Bilirubin NEGATIVE (NEGATIVE) 03/10/20 11:16 Urine Urobilinogen NEGATIVE mg/dL (<2.0) 03/10/20 11:16 Ur Leukocyte Esterase LARGE (NEGATIVE) H 03/10/20 11:16 Urine Creatinine 40.2 mg/dL (16-327) 03/10/20 15:45 Protein/Creatinin Ratio 0.3 mg/mg (0.0-0.2) H 03/10/20 15:45 Urine Total Protein 12.4 mg/dL (<12) H 03/10/20 15:45 Urine Ascorbic Acid NEGATIVE (NEGATIVE) 03/10/20 11:16 Membranes Rupture NEGATIVE (NEGATIVE) 03/10/20 11:20 Urine Opiates Screen NEGATIVE 03/10/20 11:16 Urine Methadone Screen NEGATIVE 03/10/20 11:16 Ur Barbiturates Screen NEGATIVE 03/10/20 11:16 Ur Phencyclidine Scrn NEGATIVE 03/10/20 11:16 Ur Amphetamines Screen NEGATIVE 03/10/20 11:16 U Benzodiazepines Scrn NEGATIVE 03/10/20 11:16 Urine Cocaine Screen NEGATIVE 03/10/20 11:16 U Marijuana (THC) Screen NEGATIVE 03/10/20 11:16 RPR NONREACTIVE (NONREACTIVE) 03/10/20 20:21 Blood Type O POSITIVE 03/10/20 20:21 Antibody Screen NEGATIVE 03/10/20 20:21 Plan Plan of Treatment: follow up in one week at [facility] for blood pressure check
[2020-03-12] MEDS: PRENATAL VITAMIN W DHA CAPSULE PO SCH (11:23)
[2020-03-12 11:35] VITALS: BP 127/83
== END 2020-03-12 13:50 | disposition home or self-care (01) | DRG 806 ==
LOC: LC 11:07 → LR 14:24 → 2S 03-11 10:08
PROVIDERS: ADMIT Obstetrics & Gynecology; ATTEND Obstetrics & Gynecology
PROC: 10E0XZZ Delivery of Products of Conception, External Approach (ICD-10-PCS; principal; 2020-03-10)
PROC: 10907ZC Drainage of Amniotic Fluid, Therapeutic from Products of Conception, Via Natural or Artificial Opening (ICD-10-PCS; 2020-03-10)
PROC: 3E033VJ Introduction of Other Hormone into Peripheral Vein, Percutaneous Approach (ICD-10-PCS; 2020-03-10)
PROC: 3E02340 Introduction of Influenza Vaccine into Muscle, Percutaneous Approach (ICD-10-PCS; 2020-03-12)
DX: O13.4 Gestational [pregnancy-induced] hypertension without significant proteinuria, complicating childbirth (principal); O41.03X0 Oligohydramnios, third trimester, not applicable or unspecified; Z37.0 Single live birth; O14.04 Mild to moderate pre-eclampsia, complicating childbirth; O62.3 Precipitate labor; Z3A.38 38 weeks gestation of pregnancy; Z88.1 Allergy status to other antibiotic agents; Z23 Encounter for immunization
CPT/HCPCS: 36415; 80053; 80307; 81005; 82570; 83615; 84112; 84156; 84550; 85025; 85027; 86592; 86850; 86900; 86901; 90471; 90686; 94760; G0008; J2590; J3475; J3490